=== PATIENT | female | born 1955 | race Caucasian/White ===

== ENCOUNTER → 2020-03-15 | Outpatient (CLI) | payer MEDICARE, OTHER ==
[~2020-03-15] MED LIST: LIDOCAINE 1%, 10ML ONE
== END | disposition home or self-care (01) ==
LOC: RAD 10:00
PROVIDERS: ATTEND Specialist
DX: R18.8 Other ascites (principal); C86.5 Angioimmunoblastic T-cell lymphoma
CPT/HCPCS: 49083; 82945; 84157; 88112; 88305; 89051